=== PATIENT | female | born 1970 | race Caucasian/White ===

== ENCOUNTER 2021-07-31 13:12 | Emergency (ER) | payer OTHER ==
[~2021-07-31 13:12] MED LIST: AUGMENTIN 875-1 EACH PO; CEFUROXIME500 MG PO; CLEOCIN 150MG150 MG PO; DM-GUAIF-PE 18240 ML PO; ZOFRAN ODT 4 MG4 MG SL
[2021-07-31] MEDS ORDERED: AUGMENTIN 875-1 EACH PO (20:27)
[2021-07-31] MEDS ORDERED: IBUPROFEN600 MG PO (20:27)
== END 2021-07-31 20:35 | disposition home or self-care (01) ==
LOC: ER1 13:12
DX: S81.852A Open bite, left lower leg, initial encounter (principal); Z23 Encounter for immunization; F17.200 Nicotine dependence, unspecified, uncomplicated; W54.0XXA Bitten by dog, initial encounter; Y92.410 Unspecified street and highway as the place of occurrence of the external cause
CPT/HCPCS: 73590; 90715